=== PATIENT | female | born 1995 | race African-American/Black ===

== ENCOUNTER 2024-12-12 12:44 | Emergency (ER) | payer MEDICAID ==
[~2024-12-12] VITALS: Ht 170.2 cm; Wt 91.0 kg
[2024-12-12 12:49] VITALS: O2SAT 99
[2024-12-12 13:03] VITALS: BP 114/76; PULSE 88; RESP 18; TEMP 36.6; O2SAT 100
== END 2024-12-12 17:57 | disposition left against medical advice (07) ==
LOC: ER 12:44
DX: R05.9 Cough, unspecified (principal); Z53.21 Procedure and treatment not carried out due to patient leaving prior to being seen by health care provider